=== PATIENT | male | born 1935 ===

== ENCOUNTER 2020-12-08 17:14 | Emergency (ER) | payer OTHER ==
[~2020-12-08] VITALS: Ht 165.1 cm; Wt 81.6 kg
[~2020-12-08 17:14] MED LIST: KEPPRA500 MG PO; SEPTRA DS TABLE1 TAB PO
[2020-12-08] MEDS ORDERED: COZAAR50 MG (17:53)
[2020-12-08] MEDS ORDERED: NAMENDA5 MG ×2 (17:54→18:12)
== END 2020-12-08 20:25 | disposition home or self-care (01) ==
LOC: ER 17:14
DX: I16.1 Hypertensive emergency (principal); I10 Essential (primary) hypertension; R41.0 Disorientation, unspecified; G30.8 Other Alzheimer's disease; F02.80 Dementia in other diseases classified elsewhere, unspecified severity, without behavioral disturbance, psychotic disturbance, mood disturbance, and anxiety